=== PATIENT | male | born 1950 | race Hispanic/Latino ===

== ENCOUNTER 2022-08-14 13:03 | Emergency (ER) | payer MEDICARE ==
[2022-08-14] MEDS ORDERED: MECLIZINE HCL 12.5 MG TAB PO ONE (13:45)
[2022-08-14 13:46] LABS: BASOPHILS # (AUTO) 0.1 (0.0-0.1); BASOPHILS % 0.6 % (0.0-1.0); EOSINOPHILS # (AUTO) 0.3 (0.0-0.4); EOSINOPHILS % 3.3 % (0.0-6.0); HEMATOCRIT 44.6 % (38.2-49.6); HEMOGLOBIN 14.2 g/dL (14.0-18.0); LYMPHOCYTES # (AUTO) 2.1 (1.0-3.2); LYMPHOCYTES % 20.5 % (18.0-39.1); MEAN CORPUSCULAR HEMOGLOBIN 31.5 pg (28-32); MEAN CORPUSCULAR HGB CONC 31.8 g/dL (31-35); MEAN CORPUSCULAR VOLUME 98.9 fL (81-99); MONOCYTES # (AUTO) 0.7 (0.2-0.8); MONOCYTES % 7.3 % (4.4-11.3); NEUTROPHILS # (AUTO) 6.9 (2.1-6.9); NEUTROPHILS % 67.9 % (38.7-80.0); PLATELET COUNT 222 x10e3/uL (140-360); RED BLOOD COUNT 4.51 x10e6/uL (4.3-5.7); RED CELL DISTRIBUTION WIDTH 13.2 % (11.7-14.4)
[2022-08-14 14:06] LABS: ALBUMIN 4.3 g/dL (3.5-5.0); ALBUMIN/GLOBULIN RATIO 1.3 (0.8-2.0); ANION GAP 13.7 mmol/L (8-16); CALCIUM 8.8 mg/dL (8.4-10.2); CREATININE, SERUM 1.09 mg/dL (0.72-1.25); POTASSIUM 3.7 mmol/L (3.5-5.1)
[2022-08-14 14:18] LABS: CLARITY,URINE SL CLOUDY (CLEAR); COLOR,URINE YELLOW (YELLOW); KETONES,URINE NEGATIVE (NEGATIVE); LEUKOCYTE ESTERASE ,URINE TRACE (NEGATIVE); NITRITE,URINE NEGATIVE (NEGATIVE); PROTEIN,URINE DIPSTICK 1+ (NEGATIVE); URINE UROBILINOGEN 0.2 mg/dL (0.2 - 1)
[2022-08-14 14:31] LABS: AMORPHOUS SEDIMENT,URINE MODERATE (FEW); BACTERIA,URINE FEW /HPF; EPITHELIAL CELLS,URINE FEW /LPF; MUCUS,URINE MODERATE (RARE)
[2022-08-14] MEDS ORDERED: MECLIZINE HCL12.5 MG PO (14:49)
[2022-08-14] MEDS ORDERED: CEPHALEXIN500 MG PO (14:49)
[2022-08-14 15:20] VITALS: BP 147/71
== END 2022-08-14 15:10 | disposition home or self-care (01) ==
LOC: ER 13:08
DX: R42 Dizziness and giddiness (principal); I10 Essential (primary) hypertension; E78.5 Hyperlipidemia, unspecified
CPT/HCPCS: 36415; 70450; 71045; 80053; 81001; 83880; 84484; 85025; 93005; 99284; J8597

== ENCOUNTER 2022-11-14 10:04 | Emergency (ER) | payer MEDICARE ==
[~2022-11-14] VITALS: Ht 170.2 cm; Wt 86.2 kg
[~2022-11-14 10:04] MED LIST: CEPHALEXIN500 MG PO; MECLIZINE HCL12.5 MG PO
[2022-11-14] MEDS ORDERED: METFORMIN HCL500 MG PO (10:25)
[2022-11-14] MEDS ORDERED: NIFEDIPINE ER60 M1 PO (10:25)
[2022-11-14] MEDS ORDERED: LIPITOR10 MG PO (10:25)
[2022-11-14] MEDS ORDERED: ONDANSETRON HCL INJ 2MG/ML 2ML 2 MG/ML VIAL IV STA (11:10)
[2022-11-14] MEDS ORDERED: MECLIZINE HCL 12.5 MG TAB PO ONE (11:15)
[2022-11-14] MEDS ORDERED: DEXAMETHASONE SOD PHOS INJ 4 MG/ML SDV IV ONE (11:15)
[2022-11-14 11:35] LABS: BASOPHILS # (AUTO) 0.1 (0.0-0.1); BASOPHILS % 0.6 % (0.0-1.0); EOSINOPHILS # (AUTO) 0.5 (0.0-0.4); HEMATOCRIT 46.4 % (38.2-49.6); HEMOGLOBIN 15.3 g/dL (14.0-18.0); LYMPHOCYTES # (AUTO) 3.3 (1.0-3.2); LYMPHOCYTES % 33.4 % (18.0-39.1); MEAN CORPUSCULAR HEMOGLOBIN 31.7 pg (28-32); MEAN CORPUSCULAR VOLUME 96.1 fL (81-99); MONOCYTES # (AUTO) 0.7 (0.2-0.8); MONOCYTES % 7.6 % (4.4-11.3); NEUTROPHILS # (AUTO) 5.2 (2.1-6.9); PLATELET COUNT 216 x10e3/uL (140-360); RED BLOOD COUNT 4.83 x10e6/uL (4.3-5.7); RED CELL DISTRIBUTION WIDTH 12.9 % (11.7-14.4)
[2022-11-14 11:45] LABS: ANION GAP 14.1 mmol/L (8-16); CALCIUM 9.1 mg/dL (8.4-10.2); CREATININE, SERUM 1.03 mg/dL (0.72-1.25); POTASSIUM 4.1 mmol/L (3.5-5.1)
[2022-11-14 12:01] LABS: CLARITY,URINE CLEAR (CLEAR); COLOR,URINE YELLOW (YELLOW); LEUKOCYTE ESTERASE ,URINE NEGATIVE (NEGATIVE); NITRITE,URINE NEGATIVE (NEGATIVE)
[2022-11-14 12:02] LABS: KETONES,URINE NEGATIVE (NEGATIVE); PROTEIN,URINE DIPSTICK NEGATIVE (NEGATIVE); URINE UROBILINOGEN 0.2 mg/dL (0.2 - 1)
[2022-11-14 12:15] LABS: BACTERIA,URINE FEW /HPF; EPITHELIAL CELLS,URINE FEW /LPF; RBC,URINE 0-5 /HPF (0-5); WBC,URINE (MAN) 0-5 /HPF (0-5)
[2022-11-14] MEDS ORDERED: LACTATED RINGER'S 1,000 ML IV ONE (12:15)
[2022-11-14 13:54] VITALS: O2SAT 98
[2022-11-14] MEDS ORDERED: AMOXICILLIN875 MG PO (15:01)
[2022-11-14] MEDS ORDERED: PREDNISONE20 MG PO (15:01)
[2022-11-14] MEDS ORDERED: MECLIZINE HCL12.5 MG PO (15:01)
[2022-11-14] MEDS ORDERED: NIFEDIPINE 10 MG CAP PO ONE ×2 (15:29→15:36)
== END 2022-11-14 15:45 | disposition home or self-care (01) ==
LOC: ER 10:11
DX: H83.02 Labyrinthitis, left ear (principal); E11.65 Type 2 diabetes mellitus with hyperglycemia; I10 Essential (primary) hypertension; E78.5 Hyperlipidemia, unspecified; R94.31 Abnormal electrocardiogram [ECG] [EKG]
CPT/HCPCS: 36415; 70450; 80048; 81001; 85025; 93005; 99284; J1100; J2405; J7121; J8597